=== PATIENT | female | born 1945 | race Caucasian/White ===

== ENCOUNTER 2022-12-10 08:44 | Inpatient (IN) | payer OTHER ==
[~2022-12-10] VITALS: Ht 144.8 cm; Wt 56.7 kg
[2022-12-13] MEDS ORDERED: LEVO-T88 MCG PO (08:32)
[2022-12-13] MEDS ORDERED: HYZAAR 100-251 EACH PO (08:32)
[2022-12-13] MEDS ORDERED: TOPROL XL200 MG PO (08:32)
[2022-12-13] MEDS ORDERED: ROSUVASTATIN CAL5 MG PO (08:33)
[2022-12-14] MEDS ORDERED: ALENDRONATE SOD70 MG (14:40)
[2022-12-14] MEDS ORDERED: NORVASC2.5 MG (14:40)
[2022-12-16] MEDS ORDERED: OXYC1TAB9 PO (14:25)
[2022-12-16] MEDS ORDERED: GABAPENTIN100 MG PO (14:25)
[2022-12-16] MEDS ORDERED: NORFLEX100MG PO (14:25)
[2022-12-16] MEDS ORDERED: XARELTO10 MG PO (14:26)
== END 2022-12-16 14:44 | disposition home or self-care (01) | DRG 470 ==
LOC: O/R 12-14 06:17 → OB/GYN 12-14 06:17 → SURG 12-14 08:00 → OB/GYN 12-14 15:55
PROVIDERS: ADMIT Orthopaedic Surgery; ATTEND Orthopaedic Surgery
PROC: 0SRD0JZ Replacement of Left Knee Joint with Synthetic Substitute, Open Approach (ICD-10-PCS; principal; 2022-12-14 13:00)
DX: M17.12 Unilateral primary osteoarthritis, left knee (principal); D62 Acute posthemorrhagic anemia; M85.662 Other cyst of bone, left lower leg; I10 Essential (primary) hypertension; E03.9 Hypothyroidism, unspecified